=== PATIENT | female | born 1965 | race Caucasian/White ===

== ENCOUNTER 2023-03-28 22:39 | Emergency (ER) | payer MEDICAID, OTHER ==
[~2023-03-28] VITALS: Ht 157.5 cm; Wt 78.0 kg
[2023-03-28 22:44] VITALS: BP 160/64; PULSE 89; RESP 16; O2SAT 98
[2023-03-29] MEDS ORDERED: IBUPROFEN 600MG TABLET PO STA (01:08)
[2023-03-29] MEDS ORDERED: ACETAMINOPHEN 325MG TABLET PO STA (01:10)
[2023-03-29] MEDS ORDERED: AMOX1TAB16 MT (01:38)
[2023-03-29] MEDS ORDERED: IBUP-2029 MT (02:06)
[2023-03-29 02:13] VITALS: TEMP 99.1
== END 2023-03-29 02:14 | disposition home or self-care (01) ==
LOC: ER 22:39
DX: R22.0 Localized swelling, mass and lump, head (principal); E11.9 Type 2 diabetes mellitus without complications; I10 Essential (primary) hypertension
CPT/HCPCS: 99282; 99283